=== PATIENT | male | born 1950 | race Caucasian/White ===

== ENCOUNTER 2016-10-07 10:25 | Day surgery (SDC) | payer MEDICARE, MEDICAID ==
[2016-10-07] VITALS (9 sets, daily range): BP systolic 111–137; BP diastolic 67–85; PULSE 51–70; RESP 14–15; O2SAT 94–98
[~2016-10-07] VITALS: Ht 193 cm; Wt 94.5 kg
[~2016-10-07 10:25] MED LIST: 0.9% Sodium Chloride 1,000 ML IV SCH; BETA15CR38 TP; ESOM40CA41 PO; KEN25CR EXT; Sodium Chloride LOK Flush 10 mL Syringe IV PRN; fentaNYL-PF 50 mCg/mL 2 mL Inj IVPUSH PRN
--- NOTE | 2016-10-07 13:12 | DRSVH ---
PROCEDURE: CT CHEST WITHOUT CONTRAST ([id number]) INDICATIONS: Possible esophageal perforation TECHNIQUE: Noncontrast 5 mm thick sections acquired from the pulmonary apices to the posterior costophrenic angl es. 7 mm thick coronal and sagittal MIP reformats were then acquired. For radiation dose reduction, the following was used: automated exposure control, adjustment of mA and/or kV according to patient size. Oral contrast was administered to optimize visualization of the esophagus and to detect esoph ageal perforation. COMPARISON: None. FINDINGS: Image quality: Excellent. Lungs and pleura: No acute air space opacities. No pleural effusions or pneumothorax. Central and peripheral airways are patent and normal in caliber. Mediastinum: Heart size is normal. No pericardial effusion. No mediastinal adenopathy by size crit eria. Thoracic aorta and central pulmonary arteries are normal in size. Esophagus is normal in magda arielle. No hiatal hernia. Bones and chest wall: No suspicious bony lesions. No vertebral body compression fractures. No axil yolis or supraclavicular adenopathy by size criteria. Thyroid gland is not well-visualized by this no ncontrast CT. Abdomen: Visualized upper abdominal solid organs and bowel loops appear normal in the absence of con trast. Incidental note is made of several small simple appearing hepatic cysts. IMPRESSION: There is no sign of esophageal perforation, and no paraesophageal inflammatory change is seen. Findings personally conveyed to the endoscopy suite. Dictated by: Kali Thomas M.D. on 10/07/2016 at 13:07 Approved by: Kali Thomas M.D. on 10/07/2016 at 13:11
--- NOTE | 2016-10-07 14:50 | ENDO ---
[address] [address] ENDOSCOPY PROCEDURE PATIENT: VERONICA BOGGS : 1950 MR#: [id number] ADMIT: 10/07/2016 JOB ID: [id number] DATE OF SERVICE: 10/07/2016 TYPE OF OPERATION: Esophagogastroduodenoscopy, biopsy. PREOPERATIVE DIAGNOSIS(ES): Gastroesophageal reflux disease, epigastric reflux. POSTOPERATIVE DIAGNOSIS(ES): 1. Severe distal esophagitis. 2. Medium-sized hiatal hernia. 3. Mild nonerosive gastritis. 4. A 3 mm duodenal ulcer, clean-based, nonbleeding, status post biopsy. ANESTHESIA: Fentanyl 100 mcg, Versed 5 mg IV administered. COMPLICATIONS: None. BLOOD LOSS: Minimal. DESCRIPTION OF PROCEDURE: After risks and benefits explained to the patient, informed consent was obtained. After anesthesia administered, upper endoscope was then inserted in mouth, intubated into esophagus, stomach, second portion of duodenum. Mucosa carefully examined. After procedure was done, the scope was withdrawn and the procedure terminated. FINDINGS: Upon inspection of the esophagus, there was severe erosive esophagitis in distal esophagus. Z-line located at 40 cm from the incisors. Upon entering the stomach, there was mild nonerosive gastritis that was seen. Retroflexion shows medium-sized hiatal hernia. Duodenal bulb showed a 3 cm, clean-based nonbleeding ulcer. First and 2nd portion were normal. Biopsies taken of duodenal ulcer, antrum, body, distal esophagus. After the biopsy of the distal esophagus, there was quite a bit of amount of blood that was seen in that region and which the bleeding had stopped. IMPRESSIONS: 1. Severe erosive esophagitis. 2. Medium-sized hiatal hernia. 3. Mild nonerosive gastritis. 4. A 3 mm duodenal ulcer which is nonbleeding. RECOMMENDATION: 1. Await pathology results. Nexium 40 mg by mouth twice a day. 2. Carafate 1 g by mouth four times a day. 3. CT neck and chest with contrast to rule out perforation of esophagus. Follow up in GI clinic as needed.
--- NOTE | 2016-10-11 17:05 | PATH ---
SURGICAL PATHOLOGY Attending Physician:Billy Kaiser MD CASE STATUS: Signed Out PATIENT NAME: VERONICA BOGGS PID: [id number] : 1950 DATE COLLECTED:10/07/2016 21:00 SPECIMEN: 1: Duodenum, Biopsy 2: Stomach, Antrum, Biopsy 3: Gastric, Biopsy 4: Esophagus, Biopsy CLINICAL HISTORY: EPIGASTRIC PAIN 1). DUODENUM ULCER BIOPSY 2). ANTRUM BIOPSY 3). GASTRIC BODY BIOPSY 4). DISTAL ESOPHAGUS BIOPSY FINAL DIAGNOSIS: 1.DUODENAL ULCER, BIOPSY: DUODENAL MUCOSA WITH MILD ACTIVE DUODENITIS AND FOVEOLAR METAPLASIA. Negative for dysplasia or malignancy. 2.GASTRIC ANTRUM, BIOPSY: GASTRIC ANTRAL MUCOSA WITH CHRONIC GASTRITIS. Negative for Helicobacter organisms by immunohistochemistry. Negative for intestinal metaplasia. Negative for dysplasia and malignancy. 3.GASTRIC BODY, BIOPSY: BODY-TYPE MUCOSA WITH NO DIAGNOSTIC ABNORMALITY. Negative for Helicobacter organisms. Negative for intestinal metaplasia. Negative for dysplasia and malignancy. 4.DISTAL ESOPHAGUS, BIOPSY: ULCERATED SQUAMOUS MUCOSA. NEGATIVE FOR HERPES SIMPLEX VIRUS BY IMMUNOHISTOCHEMISTRY. Negative for fungal organisms on a PAS stain. Negative for dysplasia or malignancy. ICD10 R10.13 GROSS DESCRIPTION: The specimen is received in four formalin filled containers labeled with the patient's name. 1). The specimen is labeled "duodenal ulcer" and consists of 2 portions of tissue which aggregate to 0.3 x 0.3 x 0.2 CM. The specimen is entirely submitted in cassette 1A. 2). The specimen is labeled "antrum" and consists of a 0.3 x 0.3 x 0.2 CM portion of tissue which is entirely submitted in cassette 2A. 3). The specimen is labeled "gastric body" and consists of a 0.3 x 0.2 x 0.2 CM portion of tissue which is entirely submitted in cassette 3A. 4). The specimen is labeled "distal esophagus" and consists of a 0.3 x 0.3 x 0.2 CM portion of tissue which is entirely submitted in cassette 4A. 10/07/2016DC MICRO DESCRIPTION: 2. An immunohistochemical stain was performed to evaluate for Helicobacter organisms and is negative. A control stain showed appropriate reactivity. 4. Sections are of ulcerated squamous mucosa with abundant granulation tissue and only focal strips of overlying reactive-appearing squamous epithelium. There are several atypical cells within the granulation tissue. To further evaluate these atypical cells, a small panel of immunohistochemistry was performed (each with an appropriate control). An JONO pankeratin stain highlights the overlying squamous epithelium, but is negative in the atypical cell population. The atypical cells are negative for Herpes simplex virus by immunohistochemistry; however, scattered eosinophils demonstrate nonspecific reactivity. Additionally, a PAS stain was performed to evaluate for fungal organisms and is negative. The PAS control stain shows appropriate reactivity. This test was developed and its performance characteristics determined by [facility]. It has not been cleared or approved by the [place] Food and Drug Administration. The FDA has determined that such clearance or approval is not necessary. This test is used for clinical purposes. It should not be regarded as investigational or for research. ICD-9 CODES: CPT CODES: 1: 18461 2: 02299, 63942 3: 13579 4: 29361, 70039, 02370, 60636 Electronically Signed Out Billy Manuel MD, Ph.D. [facility] [address], [place] [address] Technical component performed at [facility], [address], [place], [address]
== END 2016-10-07 23:59 | disposition home or self-care (01) ==
LOC: END 10:25
PROVIDERS: ATTEND Internal Medicine Gastroenterology
DX: K29.80 Duodenitis without bleeding (principal); K26.9 Duodenal ulcer, unspecified as acute or chronic, without hemorrhage or perforation; K44.9 Diaphragmatic hernia without obstruction or gangrene; R10.13 Epigastric pain; K21.9 Gastro-esophageal reflux disease without esophagitis; K91.840 Postprocedural hemorrhage of a digestive system organ or structure following a digestive system procedure; K22.10 Ulcer of esophagus without bleeding